=== PATIENT | female | born 1995 | race Caucasian/White ===

== ENCOUNTER 2019-06-29 19:18 | Emergency (ER) | payer BC ==
[~2019-06-29] VITALS: Ht 165.1 cm; Wt 61.8 kg
[2019-06-29 19:40] VITALS: BP 117/75
[2019-06-29 23:00] VITALS: PULSE 74; TEMP 98.9
== END 2019-06-29 23:04 | disposition home or self-care (01) ==
LOC: COL.ER 19:18
DX: R11.2 Nausea with vomiting, unspecified (principal)

== ENCOUNTER 2019-07-18 12:25 | Emergency (ER) | payer BC ==
[~2019-07-18] VITALS: Ht 165.1 cm; Wt 61.4 kg
[2019-07-18 13:12] VITALS: BP 115/63; PULSE 69; TEMP 98.6
[2019-07-18] MEDS ORDERED: TYLENOL 500MG500 MG PO (16:26)
== END 2019-07-18 14:00 | disposition left against medical advice (07) ==
LOC: COL.ER 12:25
DX: R10.30 Lower abdominal pain, unspecified (principal)

== ENCOUNTER 2019-07-18 16:03 | Emergency (ER) | payer BC ==
[~2019-07-18] VITALS: Ht 165.1 cm; Wt 62.7 kg
[2019-07-18 16:12] VITALS: TEMP 98.8
[2019-07-18] MEDS ORDERED: TYLENOL 500MG500 MG PO (16:26)
[2019-07-18 16:52] LABS: COLLECTION METHOD CLEAN CATCH
[2019-07-18 16:54] LABS: BASO # 0.1 (0.0-0.2); BASO % 0.5 % (0.0-2.0); EOS # 0.3 (0.0-0.7); EOS % 2.9 % (0-4.0); GRAN # 6.8 (1.4-6.5); GRAN % 67.1 % (42.2-75.2); HEMATOCRIT 43.6 % (37.0-47.0); LYMPH # 2.3 (1.2-3.4); LYMPH % 22.9 % (20.0-51.0); MEAN CELL VOLUME 86 fl (80.0-100.0); MEAN CORPUSCULAR HEMOGLOBIN 30 pg (27.0-31.0); MEAN CORPUSCULAR HGB CONC 34 g/dl (33.0-37.0); MEAN PLATELET VOLUME 10.5 fl (7.4-10.4); MONO # 0.6 (0.1-0.6); MONO % 6.3 % (1.7-9.3); PLATELET COUNT 229 K/mm3 (130-400); RED BLOOD COUNT 5.05 M/mm3 (4.10-5.30); REDCELL DISTRIBUTION WIDTH-CV 11.9 % (11.5-14.5)
[2019-07-18 17:03] LABS: PH 6 (5-8); URINE APPEARANCE Clear; URINE BACTERIA None Seen /hpf; URINE BILIRUBIN Negative (NEGATIVE); URINE BLOOD 1+ (NEGATIVE); URINE COLOR Straw; URINE GLUCOSE Negative (NEGATIVE); URINE KETONE Negative (NEGATIVE); URINE LEUKOCYTE ESTERASE Negative (NEGATIVE); URINE NITRATE Negative (NEGATIVE); URINE PROTEIN(semi-quant) Negative (NEGATIVE); URINE RBC 0-2 /hpf; URINE UROBILINOGEN Negative (NEGATIVE)
[2019-07-18 17:12] LABS: ALANINE AMINOTRANSFERASE 26 U/L (9-52); ALBUMIN 4.3 gm/dL (3.5-5.0); ALKALINE PHOSPHATASE 51 U/L (50-136); ANION GAP 10 mmol/L (7-16); AST,SGOT 22 U/L (15-37); BILIRUBIN,TOTAL 0.4 mg/dL (0.0-1.0); BLOOD UREA NITROGEN 13 mg/dL (7-17); CALCIUM 8.8 mg/dL (8.4-10.2); CARBON DIOXIDE 23 mmol/L (22-30); CHLORIDE 107 mmol/L (98-107); CREATININE, serum 0.74 (0.52-1.25); GLUCOSE 88 mg/dL (74-106); LIPASE 109 U/L (23-300); POTASSIUM 3.5 mmol/L (3.4-5.0); SODIUM 140 mmol/L (137-145)
[2019-07-18 17:26] LABS: C-REACTIVE PROTEIN < 0.5 mg/dL (0.0-0.9)
[2019-07-18 18:37] VITALS: BP 106/64; PULSE 65
== END 2019-07-18 18:37 | disposition home or self-care (01) ==
LOC: COL.ER 16:03
PROVIDERS: Family Medicine
DX: R10.9 Unspecified abdominal pain (principal); F17.210 Nicotine dependence, cigarettes, uncomplicated
CPT/HCPCS: J2270; J2405; J7030; Q9967

== ENCOUNTER 2020-07-03 09:35 | Emergency (ER) | payer BC ==
[~2020-07-03] VITALS: Ht 165.1 cm; Wt 70.0 kg
[~2020-07-03 09:35] MED LIST: TYLENOL 500MG500 MG PO
[2020-07-03 09:47] VITALS: TEMP 98.6
[2020-07-03 10:13] LABS: COLLECTION METHOD CLEAN CATCH
[2020-07-03 10:19] LABS: BASO % 0.2 % (0.0-2.0); EOS # 0.1 (0.0-0.7); EOS % 0.5 % (0-4.0); GRAN # 12.8 (1.4-6.5); GRAN % 82.8 % (42.2-75.2); HEMATOCRIT 38.5 % (37.0-47.0); HEMOGLOBIN 13.3 g/dl (12.5-16.0); LYMPH # 1.7 (1.2-3.4); LYMPH % 11.2 % (20.0-51.0); MEAN CELL VOLUME 89 fl (80.0-100.0); MEAN CORPUSCULAR HEMOGLOBIN 31 pg (27.0-31.0); MEAN CORPUSCULAR HGB CONC 35 g/dl (33.0-37.0); MEAN PLATELET VOLUME 9.7 fl (7.4-10.4); MONO # 0.7 (0.1-0.6); MONO % 4.8 % (1.7-9.3); PLATELET COUNT 216 K/mm3 (130-400); RED BLOOD COUNT 4.32 M/mm3 (4.10-5.30); REDCELL DISTRIBUTION WIDTH-CV 12.2 % (11.5-14.5)
[2020-07-03 10:28] LABS: MUCOUS Present /lpf; PH 6 (5-8); SQUAMOUS EPITHELIAL 0-2 /hpf; URINE APPEARANCE Cloudy; URINE BACTERIA Many /hpf; URINE BILIRUBIN Negative (NEGATIVE); URINE BLOOD Negative (NEGATIVE); URINE COLOR Yellow; URINE GLUCOSE Negative (NEGATIVE); URINE KETONE Negative (NEGATIVE); URINE LEUKOCYTE ESTERASE 2+ (NEGATIVE); URINE NITRATE Positive (NEGATIVE); URINE PROTEIN(semi-quant) Negative (NEGATIVE); URINE UROBILINOGEN Negative (NEGATIVE)
[2020-07-03 10:36] LABS: TRICYCLIC ANTIDEPRESS URINE NEGATIVE
[2020-07-03 10:37] LABS: ALANINE AMINOTRANSFERASE 22 U/L (4-34); ALBUMIN 3.7 gm/dL (3.5-5.0); ALKALINE PHOSPHATASE 69 U/L (50-136); ANION GAP 8 mmol/L (7-16); AST,SGOT 24 U/L (15-37); BILIRUBIN,TOTAL 0.4 mg/dL (0.0-1.0); BLOOD UREA NITROGEN 5 mg/dL (7-17); CALCIUM 8.7 mg/dL (8.4-10.2); CARBON DIOXIDE 21 mmol/L (22-30); CHLORIDE 106 mmol/L (98-107); CREATININE, serum 0.51 (0.52-1.25); GLUCOSE 86 mg/dL (74-106); POTASSIUM 3.7 mmol/L (3.4-5.0); SODIUM 135 mmol/L (137-145); TOTAL PROTEIN 6.7 gm/dL (6.4-8.2)
[2020-07-03 10:39] LABS: ACETAMINOPHEN < 10 ug/mL (10-30); ALCOHOL(ethanol),MEDICAL < 10 mg/dL; SALICYLATE < 1.0 mg/dL
[2020-07-03] MEDS ORDERED: BRINTELLIX10 (10:43)
[2020-07-03 16:30] VITALS: BP 116/70; PULSE 81
[2020-07-04] MEDS ORDERED: CEFTIN 250250 MG/TAB PO (16:08)
== END 2020-07-03 16:31 | disposition home or self-care (01) ==
LOC: COL.ER 09:35
PROVIDERS: Family Medicine
DX: F32.9 Major depressive disorder, single episode, unspecified (principal); R10.30 Lower abdominal pain, unspecified; R11.2 Nausea with vomiting, unspecified; R45.851 Suicidal ideations; Z87.891 Personal history of nicotine dependence

== ENCOUNTER 2020-09-02 15:43 | Outpatient (CLI) | payer BC, MEDICAID ==
[~2020-09-02] VITALS: Ht 167.6 cm; Wt 73.6 kg
[2020-09-02 14:45] VITALS: BP 124/78; PULSE 55; TEMP 98.4
--- NOTE | 2020-09-02 14:45 | NUR ---
Pt arrives on unit ambulatory with FOB. States ctx that started at 0300 that have increased in pain and frequency. Denies LOF, vaginal bleeding and reports GFM. Changed into clean gown. EFM and toco applied. VSS. SVE per Emily Peguero RN closed/high. Admission assessment completed. Dr. Emery notified. See physician notification. Pt updated on POC. Bed locked in low position. Call light within reach. No questions or concerns at this time. Fresh ice water given.
[~2020-09-02 15:43] MED LIST changes: +BRINTELLIX10; +CEFTIN 250250 MG/TAB PO; +PRENATAL MVI
[2020-09-02 15:46] VITALS: BP 109/69; PULSE 58
--- NOTE | 2020-09-02 15:48 | NUR ---
1545 NO CHANGES WITH SVE. FHT 120 GOOD ACCELERATIONS NOTED. ALL DISCHARGE INSTRUCTIONS GIVEN TO PATIENT WITH VERBAL UNDERSTANDING NOTED. DISMISSED TO HOME TO FOLLOW UP DR PARISH TOMORROW IN OFFICE.
== END 2020-09-02 15:52 | disposition home or self-care (01) ==
LOC: LDRO 15:43
DX: O62.9 Abnormality of forces of labor, unspecified (principal); Z3A.00 Weeks of gestation of pregnancy not specified

== ENCOUNTER 2020-09-03 08:07 | Inpatient (IN) | payer BC, MEDICAID ==
[2020-09-03] VITALS (36 sets, daily range): BP systolic 96–140; BP diastolic 51–76; PULSE 45–102; TEMP 98.1–98.4
[~2020-09-03] VITALS: Ht 167.6 cm; Wt 75.9 kg
[2020-09-03 08:53] LABS: HEMATOCRIT 43.6 % (37.0-47.0); HEMOGLOBIN 15.3 g/dl (12.5-16.0); MEAN CELL VOLUME 87 fl (80.0-100.0); MEAN CORPUSCULAR HEMOGLOBIN 30 pg (27.0-31.0); MEAN CORPUSCULAR HGB CONC 35 g/dl (33.0-37.0); MEAN PLATELET VOLUME 11.4 fl (7.4-10.4); PLATELET COUNT 275 K/mm3 (130-400); RED BLOOD COUNT 5.04 M/mm3 (4.10-5.30); REDCELL DISTRIBUTION WIDTH-CV 12.1 % (11.5-14.5)
[2020-09-03 09:33] LABS: BAND 2 % (0-10); LYMPHOCYTE 6 % (20.0-51.0); NEUTROPHILS 90 % (42.0-75.2); PLATELET ESTIMATE NORMAL (NORMAL)
--- NOTE | 2020-09-03 09:58 | NUR ---
0815 PATIENT HERE FOR COMPLAINTS OF CONTRACTIONS GETTING MORE INTENSE, SVE 3/100/[address] CALLED AND ORDERS FOR ADMIT. ASSESSMENT COMPLETED. BOYFRIEND AT BEDSIDE. CONTRACTIONS EVERY 3 MIN.
--- NOTE | 2020-09-03 10:08 | NUR ---
0830 IV STARTED IN LEFT HAND BY Emily KO RN LR STARTED.
--- NOTE | 2020-09-03 10:11 | NUR ---
0923 Tennille STOKES CRNA AT BEDSIDE. PATIENT SITS ON EDGE OF BED. EPIDURAL PLACED AT THIS TIME SEE INTERACTIVE MEDIA DIRECTOR NOTES.
--- NOTE | 2020-09-03 11:18 | NUR ---
1058 FHT 118 AND FHT DECREASED IN 60'S PATIENT REPOSITIONED TO KNEE CHEST POSITION. FHT REMAIN DOWN FOR 8 MIN. PITOCIN OFF AND O2 10/MASK. SVE 5-6/100/[address] PARISH CALLED AT THIS TIME TO COME TO [facility] NOW. 1108 FHT 118. PITOCIN REMAINS OFF. 1110 [address] PARISH AT BEDSIDE SVE 5-6/100/0.
--- NOTE | 2020-09-03 13:50 | NUR ---
1340 SVE UNCHANGED. PITOCIN STARTED AT 2 PER
--- NOTE | 2020-09-03 15:19 | NUR ---
1510 DR PARISH CALLED AND UPDATED ON SVE /
--- NOTE | 2020-09-03 17:09 | NUR ---
1600 PATIENT COMPLETE/+1 DR PARISH CALLED TO COME FOR DELIVERY NOW. PATIENT LINSEY START PUSHING.
--- NOTE | 2020-09-03 17:14 | NUR ---
1615 DR PARISH AT BEDSIDE FOR DELIVERY. PATIENT CONTINUESTO PUSH WITH CONTRACTIONS. FHT 70 WITH PUSHING
--- NOTE | 2020-09-03 17:16 | NUR ---
164 BABY BOY BORN VIA . CORD CLAMPED AND CUT BY DR AND PATIENT. BABY TO MOM CHEST FOR SKIN TO SKIN. STRONG CRY NOTED. 1654 PLACENTA DELIVERED AND PITOCIN STARTED PER PROTOCOL AT 333/HR. FUNDUS FIRM AND SMALL LACERATION REPAIRED BY DR PARISH. PATIENT TOLERATES WELL.
[2020-09-04] VITALS (7 sets, daily range): BP systolic 95–124; BP diastolic 51–66; PULSE 50–106; TEMP 97.9–100.4
[2020-09-04] MEDS ORDERED: IBU600 MG PO (08:24)
--- NOTE | 2020-09-04 10:17 | NUR ---
Initial visit; Patient thanked Typo Machine Operator for offering congratulations for the of her son. Typo Machine Operator offered God's blessings and thanked family for choosing our hospital.
[2020-09-04 16:15] LABS: BASO % 0.2 % (0.0-2.0); EOS # 0.1 (0.0-0.7); EOS % 0.4 % (0-4.0); GRAN # 13.7 (1.4-6.5); GRAN % 86.8 % (42.2-75.2); LYMPH # 0.9 (1.2-3.4); LYMPH % 5.9 % (20.0-51.0); MEAN CELL VOLUME 89 fl (80.0-100.0); MEAN CORPUSCULAR HGB CONC 34 g/dl (33.0-37.0); MEAN PLATELET VOLUME 10.2 fl (7.4-10.4); MONO % 6.1 % (1.7-9.3); RED BLOOD COUNT 4.06 M/mm3 (4.10-5.30); REDCELL DISTRIBUTION WIDTH-CV 12.2 % (11.5-14.5)
[2020-09-04 16:19] LABS: HEMATOCRIT 36.3 % (37.0-47.0); HEMOGLOBIN 12.4 g/dl (12.5-16.0); MEAN CORPUSCULAR HEMOGLOBIN 31 pg (27.0-31.0); PLATELET COUNT 137 K/mm3 (130-400)
--- NOTE | 2020-09-04 20:45 | NUR ---
2044- PT STATES SHE IS COLD AGAIN AND FEELING ACHY AND SHIVERING. TEMPERATURE 100.4 ORALLY. TYLENOL AND MOTRIN PROVIDED AND WILL RECHECK ON TEMPERATURE.
[2020-09-05] VITALS (7 sets, daily range): BP systolic 93–129; BP diastolic 53–89; PULSE 51–111; TEMP 97.6–103.1
--- NOTE | 2020-09-05 09:47 | NUR ---
Pt and FOB left unit to smoke and pt returned on unit via wheelchair. States "feeling very light-headed." This RN asked about substance use while outside. Pt states she did not smoke but the FOB did. VS obtained. Elevated temp and pulse. Pt states "my eyes feel so heavy." Eye movements slow and asymmetric. Pupils slow to react but do constrict. Pulse ox 98% HR regular. Ibprofen given. Will updated Dr. Kearns with findings.
[2020-09-05 10:33] LABS: COLLECTION METHOD CLEAN CATCH
[2020-09-05 10:40] LABS: BASO # 0.1 (0.0-0.2); BASO % 0.2 % (0.0-2.0); GRAN # 20.1 (1.4-6.5); GRAN % 86.3 % (42.2-75.2); HEMOGLOBIN 12.8 g/dl (12.5-16.0); LYMPH # 1.2 (1.2-3.4); LYMPH % 4.9 % (20.0-51.0); MEAN CELL VOLUME 88 fl (80.0-100.0); MEAN CORPUSCULAR HEMOGLOBIN 31 pg (27.0-31.0); MEAN CORPUSCULAR HGB CONC 35 g/dl (33.0-37.0); MEAN PLATELET VOLUME 10.3 fl (7.4-10.4); MONO # 1.7 (0.1-0.6); MONO % 7.4 % (1.7-9.3); PLATELET COUNT 156 K/mm3 (130-400); RED BLOOD COUNT 4.15 M/mm3 (4.10-5.30); REDCELL DISTRIBUTION WIDTH-CV 12.2 % (11.5-14.5)
[2020-09-05 10:46] LABS: HEMATOCRIT 36.7 % (37.0-47.0)
[2020-09-05 10:48] LABS: ALBUMIN 3.2 gm/dL (3.5-5.0); BILIRUBIN,TOTAL 0.9 mg/dL (0.0-1.0); CALCIUM 8.3 mg/dL (8.4-10.2); CREATININE, serum 0.76 (0.52-1.25); POTASSIUM 3.1 mmol/L (3.4-5.0); TOTAL PROTEIN 6.1 gm/dL (6.4-8.2)
[2020-09-05 10:54] LABS: MUCOUS Present /lpf; PH 7 (5-8); URINE APPEARANCE Hazy; URINE BACTERIA Moderate /hpf; URINE BILIRUBIN Negative (NEGATIVE); URINE BLOOD 3+ (NEGATIVE); URINE COLOR Yellow; URINE GLUCOSE Negative (NEGATIVE); URINE KETONE Trace (NEGATIVE); URINE LEUKOCYTE ESTERASE 2+ (NEGATIVE); URINE NITRATE Negative (NEGATIVE); URINE PROTEIN(semi-quant) 2+ (NEGATIVE); URINE RBC >50 /hpf; URINE WBC >50 /hpf
[2020-09-05 10:58] LABS: TRICYCLIC ANTIDEPRESS URINE NEGATIVE
--- NOTE | 2020-09-05 11:29 | NUR ---
RN discussing lab results with pt. Positive MJ. Pt states, "I don't smoke." FOB states, "we catherine't to a friend's house a couple of days ago and she handed out desert. Maybe there was something in there." This RN educated on choosing appropriate friends now that there is a baby involved, and to find out if the friend actually did put drugs illegally in there food. Pt were attempting to feed sleeping .
--- NOTE | 2020-09-05 14:37 | NUR ---
Fuller Brush Man consulted for the patient due to positive uds for marijuana. See nurses notes for patient interaction for trigger for UDS after . The cord blood was not sent for further testing due to the placenta being sent to pathology after . It was then tainted. The nurse has no concerns about the patient discharging home with baby. WANDA met with the patient. The patient has all supplies needed for the baby. The patient is signed up for [facility]. The patient's support are the FOB, Josh Hallman and her [id number]. WANDA addressed the marijuana use. The patient admitted to marijuana use, smoking cigarettes and drinking prior to . The patient stopped once she found out she was . SW addressed the current positive UDS. The patient states that she went to a friends house. The friend served brownies for dessert and they may have contained marijuana without the patient's knowledge. The patient declines treatment at this time. SW addressed the patient's history of depression and anxiety. The patient states she sees Nuria rizvi) at [place]. The patient had a medication evaluation on August 24. She is currently not on medication due to her potentially . She will discuss getting on medications after discharge if she decides not to breastfeed after she is cleared, since she tested positive for marijuana. The patient is employed at [employer] but is on maternity leave. The patient had a negative uds on 04/22/2020. CPS report made. Intake # [id number]. WANDA collaborated the above information with the patient's nurse.
[2020-09-06 03:00] VITALS: BP 89/39; PULSE 56; TEMP 98.9
--- NOTE | 2020-09-06 03:00 | NUR ---
0300 AWAKE ASKING FOR A WARM BLANKET. STATES IS FEELING VERY COLD AND CHILLING. TEMP 98.9. MOTRIN 600MG PO GIVEN. INT INTACT AND ABX INFUSING.
[2020-09-06 07:30] VITALS: BP 100/64; PULSE 76; TEMP 98.1
[2020-09-06] MEDS ORDERED: AMOXICILLIN 8751 TAB PO (08:38)
--- NOTE | 2020-09-06 11:09 | NUR ---
1110 ALL DISCHARGE INSTRUCTIONS GIVEN TO PATIENT AND BOYFRIEND WITH VERBAL UNDERSTANDING NOTED.
== END 2020-09-06 12:13 | disposition home or self-care (01) | DRG 806 ==
LOC: LDRO 08:07 → LDR 08:15 → OB 08:15
PROVIDERS: ADMIT Obstetrics & Gynecology
PROC: 10E0XZZ Delivery of Products of Conception, External Approach (ICD-10-PCS; principal; 2020-09-03)
PROC: 10907ZC Drainage of Amniotic Fluid, Therapeutic from Products of Conception, Via Natural or Artificial Opening (ICD-10-PCS; 2020-09-03)
PROC: 0UQMXZZ Repair Vulva, External Approach (ICD-10-PCS; 2020-09-03)
DX: O43.113 Circumvallate placenta, third trimester (principal); O86.12 Endometritis following delivery; Z37.0 Single live birth; O70.0 First degree perineal laceration during delivery; Z3A.38 38 weeks gestation of pregnancy
CPT/HCPCS: J0290; J1580; J2590; J2795; J7120